=== PATIENT | male | born 1965 | race Caucasian/White ===

== ENCOUNTER → 2021-08-04 | Outpatient (CLI) | payer BC ==
--- NOTE | 2021-08-04 15:06 | CT ---
EXAMINATION TYPE: CT chest w con DATE OF EXAM: 08/04/2021 COMPARISON: None HISTORY: Dyspnea. 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 CONTRAST: CT scan of the chest is performed with IV Contrast, patient injected with 100 mL of Isovue 300. FINDINGS: LUNGS: The lungs are grossly clear, there is no concerning parenchymal mass or nodule identified. M ild subpleural fibrotic change in left upper and lower lobe and to a lesser extent the right upper an d lower lobe. There is no pleural effusion or pneumothorax seen. The tracheobronchial tree is patent . MEDIASTINUM: There are no greater than 1 cm hilar or mediastinal lymph nodes. No pericardial effusi on is seen. Thoracic aorta is of normal caliber. The heart is not enlarged. UPPER ABDOMEN: No significant abnormality appreciated. OTHER: No additional significant abnormality is seen. IMPRESSION: Mild subpleural fibrosis. Otherwise unremarkable study.
== END | disposition home or self-care (01) ==
LOC: RADCTMAIN 14:19
PROVIDERS: ATTEND Internal Medicine
DX: J84.10 Pulmonary fibrosis, unspecified (principal)
CPT/HCPCS: 71260; Q9967

== ENCOUNTER → 2021-10-12 | Outpatient (CLI) | payer BC ==
--- NOTE | 2021-10-13 06:55 | MR ---
EXAMINATION TYPE: MR hip LT wo con DATE OF EXAM: 10/12/2021 COMPARISON: None HISTORY: L hip pain Multiplanar multiecho imaging of both hips and the pelvis without contrast. The pelvic ring appears intact. Sacroiliac joints are intact the acetabula appear normal. There is no evidence of a pelvic mass. There is no free fluid in the pelvis. Bladder distends smoothly. There is no sign of pelvic lymphadenopathy. There is 2.2 x 1 cm area of decreased signal on the T1 images in the superior aspect right femoral he ad. This is consistent with focus of avascular necrosis. There is no evidence of any significant jay jay apse of the articular surface. The proximal left femur is intact. There is no evidence of any signifi cant hip joint effusion. There is no evidence of a soft tissue mass. 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 No evidence of any sign ificant abnormality of the left hip.
== END | disposition home or self-care (01) ==
LOC: RADMRIMAIN 12:59
PROVIDERS: ATTEND Orthopaedic Surgery
DX: M87.852 Other osteonecrosis, left femur (principal)

== ENCOUNTER 2021-12-01 09:56 | Day surgery (SDC) | payer BC ==
[2021-11-25 15:52] VITALS: BMI 32.8
--- NOTE | 2021-11-29 10:26 | P.HPOR ---
History of Present Illness H&P Date: 11/29/21 Chief Complaint: Right carpal tunnel/cubital tunnel syndrome Subjective: This is a 56 year old male that presents today for follow evaluation regarding right hand pain and numbness in the middle ring and small finger. 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 He notes his hand goes numb when he talks on the phone for prolonged periods of time with the elbow flexed. He works as a iraheta. He recently had an EMG of the RUE completed. Physical Examination: RUE: AIN/PIN/Radial/Ulnar/Median motor intact. Radial/Ulnar/Median SILT. 2+/4 Radial/Ulnar pulses palpated. 5/5 APB, 5/5 FDI. Negative Finkelsteins, negative CMC grind, negative Durkan's compression. Subjective paresthesias with elbow held in flexion. Elbow ROM 0-130 full P/S. NTTP over A1 pulleys of all digits with no clicking locking or catching. Imaging/EMG/NCV: EMG/NCV of the RUE demonstrate moderate right median nerve compressive neuro ko at the wrist. Ulnar nerve motor conduction velocity slowed across elbow with 84.6m/s above and 46.8m/s below. Impression: 1.) Right carpal tunnel syndrome 2.) Right cubital tunnel syndrome Plan: Diagnosis and treatment options were discussed with the patient. He has carpal and cubital tunnel syndrome that has failed conservative treatment. I recommend surgical intervention with endoscopic possible open carpal tunnel release and an right open cubital tunnel release. Risks and benefit of surgery including bleeding, infection, damage to surrounding tissue, need for further surgery, possible need to convert to open procedure, residual numbness were discussed and the patient wished to go forward with surgery. -Faustino Verdin DO Orthopedic Hand/Upper Extremity Surgeon Past Medical History Past Medical History: Hyperlipidemia, Osteoarthritis (OA), Sleep Apnea/CPAP/BIPAP Additional Past Medical History / Comment(s): not using CPAP, History of Any Multi-Drug Resistant Organisms: None Reported Past Surgical History: Appendectomy Additional Past Surgical History / Comment(s): surgery for fx nose, colonsocopy Past Anesthesia/Blood Transfusion Reactions: No Reported Reaction Smoking Status: Current some day smoker, Former smoker - Past Family History Brother(s) Family Medical History: Cancer Medications and Allergies Home Medications Medication Instructions Recorded Confirmed Type Atorvastatin [Lipitor] 20 mg PO HS 11/25/21 11/25/21 History Meloxicam 15 mg PO DAILY 11/25/21 11/25/21 History Zinc 50 mg PO DAILY 11/25/21 11/25/21 History Allergies Allergy/AdvReac Type Severity Reaction Status Date / Time No Known Allergies Allergy Verified 11/25/21 15:43 Physical Examination Osteopathic Statement: *. No significant issues noted on an osteopathic structural exam other than those noted in the History and Physical/Consult.
[~2021-12-01 09:56] MED LIST: DEXAMETHASONE SOD PHOSPHATE 4 MG/ML 1 ML VIAL IV ONE; HYDROmorphone 0.5 MG/0.5 ML SYRINGE IVP PRN; LACTATED RINGERS 1,000 ML IV SCH; ONDANSETRON 4 MG/2 ML VIAL IVP ONE
[2021-12-01] MEDS ORDERED: MIDAZOLAM 2 MG/2 ML VIAL ONE (12:30)
[2021-12-01] MEDS ORDERED: LIDOCAINE 1% INJ 10MG/ML (20 ML MDV) ONE (12:30)
[2021-12-01] MEDS ORDERED: SUCCINYLCHOLINE CHLORIDE 100 MG/5 ML SYR IV ONE (12:30)
[2021-12-01] MEDS ORDERED: PROPOFOL 10 MG/ML 20 ML VIAL IV ONE (12:30)
[2021-12-01] MEDS ORDERED: fentaNYL (PF) 50 MCG/ML 2 ML AMP ONE (12:30)
[2021-12-01] MEDS ORDERED: BUPIVACAINE (PF) 0.5% 30 ML VIAL SQ ONE ×2 (12:56→13:26)
[2021-12-01 13:45] VITALS: RESP 16; TEMP 97.1
[2021-12-01 15:23] VITALS: BP 125/74; PULSE 65
--- NOTE | 2021-12-01 16:30 | P.OP ---
Date of Procedure: 12/01/21 Preoperative Diagnosis: 1.) Right carpal tunnel syndrome 2.) Right cubital tunnel syndrome Postoperative Diagnosis: Same Procedure(s) Performed: 1.) Right endoscopic carpal tunnel release 2.) Right open cubital tunnel release Anesthesia: LISA Surgeon: Faustino Verdin Metal Window Screen Assembler #1: Negro Mayorga Estimated Blood Loss (ml): 0 Pathology: none sent Condition: stable Disposition: PACU Description of Procedure: This is a 56 year old male who presents today for a right endoscopic carpal tunnel release and open cubital tunnel release after having failed conservative treatment in the past. Risks and benefits of surgery were discussed with the patient including bleeding, damage to surrounding tissue, infection, need to convert to open procedure, need for further surgery as well as risks of anesthesia including pulmonary embolism and even and the patient wished to proceed with surgical intervention. The patients was seen in the pre-operative area by myself. Consent and H&P were completed and updated. The correct extremity was marked in the pre-operative area by myself and all other questions were answered. Operative Narrative: The patient was brought to the operating room by the department of anesthesia. They remained on the portable stretcher and a rolling hand table was brought to the side of the operative extremity. Pre-operative time out was performed indicating the correct patient, procedure and laterality. All in the room agreed. The patient was then drifted off to sleep by the department of anesthesia. A nonsterile tourniquet was then applied to the operative extremity and the right upper extremity was then prepped and draped in normal sterile fashion. The operative extremity was the exsanguinated with an esmarch bandage and the tourniquet was inflated to 250mmHg. 15 blade scalpel was utilized to make a transverse incision on the palmar skin just ulnar to the palmaris longus tendon at the level of the distal wrist crease. Ragnell retractor was then placed radially and blunt dissection was performed to reveal the distal forearm fascia. This was lifted with fine Sedrick pick ups and Littler tenotomy scissors were then used to open the forearm fascia transversely and a double skin hook was then placed. Hamate finder was placed into the carpal tunnel and then sequential sized dilators were inserted followed by the synovial elevator to separate the flexor tenosynovium from the undersurface of the transverse carpal ligament and a washboard texture was felt. The MicroAire endoscopic carpal tunnel release system gun was the then inserted into the carpal tunnel hugging the deep portion of the transverse carpal ligament in line with the base of the ring finger. Transverse fibers of the ligament were directly visualized. Pressure was applied on the palm to reveal the distal extent of the transverse carpal ligament. The blade was then deployed and the distal half of the transverse carpal ligament was released. The scope was then brought distal again and remaining transverse fibers were incised with the blade. The proximal half of the transverse carpal ligament was then divided and again the scope was advanced distal and remaining transverse fibers were incised with the blade. The radial and ulnar leaflets were directly visualized and mobile consistent with complete release. Tenotomy scissors were then utilized to release the remaining distal forearm fascia under direct vis ualization taking care to preserve the palmar cutaneous branch of the median nerve. Skin closure was performed with interrupted 4-0 Monocryl suture followed by Mastisol and steri strips. Attention as then felicitas to the medial elbow. 15 blade scalpel was used to incise skin in between the medial epicondyle and olecranon in a curvlinear and longitudinal fashion. Blunt dissection was taken down through subcutaneous tissue with tenotomy scissors and branches of the MABCN were identified and protected. Dissection was carried proximally and the ulnar nerve was identified and released in it's entirety to the the intermuscular septum. Dissection was then carried distally and mccabe's ligament was released at the medial epicondyle, the nerve appeared compressed at this location. Dissection was then carried out further distal and the fascia of the two heads of the FCU were incised and the ulnar nerve was decompressed with [place] and tenotomy scissors and appeared to be tension free. The elbow was the flexed and extended and the ulnar nerve appeared to be stable in a tension free manner. 0.5% bupivacaine was injected into the subcutaneous tissues. Skin closure was performed with interrupted 4-0 Monocryl sutures followed by running 4-0 nylon sutures tourniquet was then let down and the hand had immediate perfusion. Sterile dressing was applied consisting of adaptic, 4x4s, Webril, and an edilson bandage. Tourniquet was let down and the hand immediately was well perfused. The patient was then woken by the department of anesthesia and transferred to PACU in stable condition. Negro REED was present for the case in its entirety and assisted in major portions of the case and protection of vital neurovascular structures. Faustino Verdin D.O. Orthopedic Hand/Upper Extremity Surgeon
== END 2021-12-01 15:36 | disposition home or self-care (01) ==
LOC: OR 09:56
PROVIDERS: ATTEND Orthopaedic Surgery Hand Surgery
DX: G56.01 Carpal tunnel syndrome, right upper limb (principal); G56.21 Lesion of ulnar nerve, right upper limb; E78.5 Hyperlipidemia, unspecified; G47.33 Obstructive sleep apnea (adult) (pediatric); F17.200 Nicotine dependence, unspecified, uncomplicated; Z98.890 Other specified postprocedural states; Z79.899 Other long term (current) drug therapy; Z90.49 Acquired absence of other specified parts of digestive tract
CPT/HCPCS: 29848; 64718; J2250; J1100; J0690; J2405; J2001; J3010; J0330; J2704